=== PATIENT | female | born 1980 | race Two or more races ===

== ENCOUNTER 2017-10-10 09:09 | Emergency (ER) | payer OTHER ==
[2017-10-10 09:14] VITALS: BP 131/90; PULSE 72; TEMP 98.4; BMI 31.1
[2017-10-10] MEDS ORDERED: IBUPROFEN 400 MG TABLET (FP) PO ONE ×2 (09:36→09:38)
--- NOTE | 2017-10-10 09:38 | PDOC ---
History of Present Illness - General Chief Complaint: Sore Throat Stated Complaint: SORE THROAT Time Seen by Provider: 10/10/17 09:31 History Source: Patient Exam Limitations: No Limitations - History of Present Illness Initial Comments: 10/10/17 09:36 for evaluation of cough, fevers, sore throat pain, general body aches that started Bryson night. States worsened through the weekend with fevers to 1 dose to that included moist cough with some nausea. This morning woke up and had no fever but mild nausea and sore throat pain persists. Timing/Duration: unsure Severity: mild, moderate Associated Symptoms: reports: denies symptoms, cough. denies: fever/chills Past History - Travel Traveled outside of the country in the last 30 days: No Close contact w/someone who was outside of country & ill: No - Past Medical History Allergies/Adverse Reactions: Allergies Allergy/AdvReac Type Severity Reaction Status Date / Time No Known Allergies Allergy Verified 10/10/17 09:14 Home Medications: Ambulatory Orders NK [No Known Home Medication] 10/10/17 Asthma: No Cancer: No Cardiac Disorders: No COPD: No Diabetes: No HTN: No Seizures: No Thyroid Disease: No Other medical history: DENIES MEDICAL HX - Suicide/Smoking/Psychosocial Hx Smoking History: Never smoked Have you smoked in the past 12 months: No Hx Alcohol Use: No Drug/Substance Use Hx: No Hx Substance Use Treatment: No Review of Systems - Review of Systems Able to Perform ROS?: Yes Is the patient limited Nigerien proficient: Yes Constitutional: Yes: Symptoms Reported, See HPI, Fever, Malaise HEENTM: Yes: Symptoms Reported, See HPI, Nose Congestion, Throat Pain, Difficulty Swallowing Respiratory: Yes: Symptoms reported, See HPI, Cough Cardiac (ROS): No: Symptoms Reported ABD/GI: Yes: Symptoms Reported, See HPI, Nausea. No: Vomiting Integumentary: Yes: Symptoms Reported, See HPI All Other Systems: Reviewed and Negative *Physical Exam - Vital Signs Last Vital Signs Temp Pulse Resp BP Pulse Ox 98.4 F 72 16 131/90 97 10/10/17 09:12 10/10/17 09:12 10/10/17 09:12 10/10/17 09:12 10/10/17 09:12 - Physical Exam Comments: 10/10/17 09:37 GENERAL: [The child is awake, alert, and appropriately interactive.] EYES: [The pupils are equal, round, and reactive to light, with clear, conjunctiva.but glassy] NOSE: [The nose with clear drainage EARS: [The ear canals and tympanic membranes are congested but landmarks easily visualed ] THROAT: [The oropharynx is clear with erythema, no exudates. The mucous membranes are moist.] NECK: [The neck is supple with mildly tender adenopathy, no menigemous] CHEST: [The lungs are coarse but clear without crackles, or wheezes.] HEART: [Heart is regular rhythm, with normal S1 and S2, no murmurs.] ABDOMEN: [The abdomen is soft and nontender with normal bowel sounds. There is no organomegaly and no mass. There is no guarding or rebound.] EXTREMITIES: [Extremities are normal.] NEURO: [Behavior is normal for age.cranky but easily,m Tone is normal.] SKIN: [Skin is unremarkable without rash or swelling. There is no bruising, and there are no other signs of injury.] General Appearance: Yes: Nourished, Appropriately Dressed, Apparent Distress, Mild Distress HEENT: positive: Kimi MENDOZA Normal Medical Decision Making - Medical Decision Making 10/10/17 09:38 Upper respiratory infection, probable influenza however outside window for Tamiflu use. We'll continue conservative treatment *DC/Admit/Observation/Transfer Diagnosis at time of Disposition: Influenzal acute upper respiratory infection - Discharge Dispostion Disposition: HOME Condition at time of disposition: Stable Admit: No - Referrals - Patient Instructions Printed Discharge Instructions: DI for Viral Upper Respiratory Infection -- Adult Additional Instructions: Rest, drink lots of fluids: Teas, water, soups, Pedialyte Saltwater gargles Steamy showers/seem to face break up mucus Old-fashioned treatments help! Avoid contact with others until fevers and cough resolved as this is very contagious Lots of handwashing and good hygiene Continue [id number] medications for symptomatic relief Tylenol or Motrin for fever and pain Followup with private physician in one to 2 days as needed or if worsening Return to emergency department for worsened symptoms, fevers, dehydration Influenza takes between 5 and 7 days for resolution To not participate in any activity, work, or school until fevers and cough are gone for at least one day - Post Discharge Activity
== END 2017-10-10 09:41 | disposition home or self-care (01) ==
LOC: JER 09:09
DX: J11.1 Influenza due to unidentified influenza virus with other respiratory manifestations (principal)
CPT/HCPCS: 99281-25

== ENCOUNTER → 2023-03-24 | Day surgery (SDC) | payer OTHER | END | disposition home or self-care (01) | LOC: FMAMMOTONE 09:58 | PROVIDERS: ATTEND Nurse Practitioner Adult Health | PROC: 0HBT3ZX Excision of Right Breast, Percutaneous Approach, Diagnostic (ICD-10-PCS; principal; 2023-03-24) | DX: N61.21 Granulomatous mastitis, right breast (principal); R92.0 Mammographic microcalcification found on diagnostic imaging of breast | CPT/HCPCS: 19081; 76098-TC-FY; 87899; 88305-TC; 88342-TC; A4648 ==